=== PATIENT | female | born 1970 | race Caucasian/White ===

== ENCOUNTER 2022-07-13 14:59 | Outpatient (CLI) | payer OTHER, SELFPAY ==
[2022-07-13 16:12] VITALS: BP 100/62; PULSE 95; RESP 18
--- NOTE | 2022-07-13 16:17 | PM.ST ---
Stress Test Note Date Date Seen: 07/13/22 Date of test: 07/13/22 Providers Referring provider: Cecile Lopez Primary care provider: Cecile Lopez Stress test physician: Jorge Ponce Stress Test Note Stress test ordered: Stress Echo Indication for test: Chest pain Stress test medicine: Definity Results discussion: Very nice 51-year-old female presents here with a history of chest pain cardiac stress test medical history form, and the risks benefits and side effects were discussed with both her and her partner. She would like to proceed pretest EKG shows normal sinus rhythm normal EKG with no acute ST wave changes.
--- NOTE | 2022-07-13 16:27 | PM.ST ---
Stress Test Note Date Date Seen: 07/13/22 Date of test: 07/13/22 Providers Referring provider: Mariel Magaña Primary care provider: Cecile Lopez Stress test physician: Jorge Ponce Stress Test Note Stress test ordered: Stress Echo Indication for test: chest pain Stress test medicine: Definity Results discussion: Patient is a makenzie 51-year-old female presents for the above test after discussion the risks benefits and side effects she would like to proceed pretest EKG shows normal sinus rhythm, she appears to have PACs, and a bigeminal type pattern. Sinus and rate of 72 with a blood pressure 104 and 62. She is exercised for a total time of 8 minutes, 1st achieved a metabolic equivalent of 9.7. Test is stop to do fulfillment of protocol, she had no chest pain or shortness of breath, there is no EKG changes suggestive of ischemia, no other acute dysrhythmias are noted. And she recovered normally in the recovery. Impression: Negative electrographic portion of stress echo Follow up suggested: Await echo findings, these will be reviewed by Cardiology, patient left this testing facility in excellent condition.
== END 2022-07-13 15:00 | disposition home or self-care (01) ==
LOC: STRESS 14:59
PROVIDERS: PCP Family Medicine; Visit Provider Family Medicine
DX: R07.89 Other chest pain (principal)
CPT/HCPCS: 93016; 93325; 93351

== ENCOUNTER 2022-08-10 14:39 | Outpatient (CLI) | payer OTHER, SELFPAY | END 2022-08-10 14:40 | disposition home or self-care (01) | LOC: INJ CL 14:39 | PROVIDERS: PCP Family Medicine; Visit Provider Family Medicine | DX: M17.12 Unilateral primary osteoarthritis, left knee (principal); M25.562 Pain in left knee | CPT/HCPCS: 64454 ==

== ENCOUNTER 2022-08-31 12:32 | Outpatient (CLI) | payer OTHER, SELFPAY | END 2022-08-31 12:33 | disposition home or self-care (01) | LOC: INJ CL 12:32 | PROVIDERS: PCP Family Medicine; Visit Provider Family Medicine | DX: M17.12 Unilateral primary osteoarthritis, left knee (principal); G89.29 Other chronic pain; M25.562 Pain in left knee | CPT/HCPCS: 64624; J2250; J3010 ==

== ENCOUNTER 2022-11-17 06:11 | Day surgery (SDC) | payer OTHER, SELFPAY ==
[2022-11-17] VITALS (13 sets, daily range): BP systolic 91–132; BP diastolic 58–89; PULSE 65–98; RESP 16–20; TEMP 36.2–37.1; O2SAT 93–97; BMI 38.9
[2022-11-17] MEDS: LACTATED RINGERS 1000 ML 1,000 ML 100 ML IV (06:00)
[2022-11-17] MEDS: SODIUM CHLORIDE 0.9 % (FLUSH) 10 ML SYRINGE IVF (06:53)
[2022-11-17 06:59] LABS: HCG Qualitative* Negative (Negative)
[2022-11-17] MEDS: CEFAZOLIN 2 GM in 0.9 % SODIUM CHLORIDE Mini-bag 100 ML IVPB (07:28)
--- NOTE | 2022-11-17 07:55 | P.ORPRC_ITS ---
Procedure Note Date of procedure: 11/17/22 Procedure: PREOPERATIVE DIAGNOSIS: 1. Left knee lateral meniscus tear POSTOPERATIVE DIAGNOSIS: 1. Left knee lateral meniscus tear 2. 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 Left knee arthroscopic partial lateral meniscectomy 2. Left knee arthroscopic chondroplasty medial and lateral femoral condyles/compartments SURGEON: Adams Gaitan M.D. PEDIATRIC SURGEON: Jakob ROGEL. Of note, an licensed occupational therapy assistant was critical for this case to aid in patient positioning, knee manipulation, instrument exchange, and closure. ANESTHESIA: Spinal EBL: 2ml TOURNIQUET: 25 minutes at 300 torr COMPLICATIONS: None evident INDICATIONS: The patient is a pleasant 52-year-old female who has experienced left knee pain particularly with any twisting or turning. Physical exam was concerning for medial meniscus tear, this was confirmed on MRI. Additionally, attempted nonoperative management has been tried, and failed. Thus, surgery was recommended. FINDINGS: Full-thickness chondral loss with grade 4 lesions weight-bearing portion lateral femoral condyle and medial femoral condyle both measuring a pproximately 8-10 mm in diameter. Some loose chondral flaps on the adjacent edges. Complex tearing midbody lateral meniscus. Also some splitting and tearing of the anterior horn lateral meniscus. Posterior root was intact. Medial meniscus was intact including the posterior root. Cruciate ligaments intact. No loose bodies. DESCRIPTION OF PROCEDURE: After a thorough discussion of risks, benefits, and alternatives, the patient was brought to the operating room and placed upon the operating table. Induction of anesthesia was undertaken as previously noted. 2g iv Ancef was administered within 1 hr of incision preoperatively. Appropriate time-out was performed identifying proper patient, site, and procedure. The left lower extremity was prepped and draped in the appropriate sterile fashion using ChloraPrep. The limb was exsanguinated and tourniquet inflated. Anterolateral and anteromedial portals were established with an 11 blade, and a diagnostic arthroscopy was performed. This identified the findings as noted above. Following the diagnostic arthroscopy, a partial lateral menisectomy was performed with the combination of basket forceps and a motorized shaver. Following this, the meniscus was re-probed and found to be stable. Approximately 10-15 % of the overall meniscus required resection. Chondroplasty was also performed of the loose chondral flaps in both the medial and lateral compartments adjacent to the grade 4 chondral lesions on the medial and lateral femoral condyle weight-bearing portions. This was done via a torpedo shaver. At this stage, the shaver was reinserted into the suprapatellar pouch and all remaining meniscal debris was evacuated. Instruments were removed, excess fluid was drained, and closure performed with 4-0 Monocryl with Steri-Strips. Dressings were applied, the tourniquet deflated, and the patient was awoken from anesthesia and transferred to the PACU in stable condition. PLAN: 1. Weightbear as tolerated operative extremity. Crutch / walker ambulation assistance PRN. Straight leg raise to be initiated starting tomorrow by the patient. 2. Ice, acetominophen and/or ibuprofen, and Percocet for pain as needed. 3. Knee range of motion and quad sets/straight leg raise regularly 4. Follow up with PA visit in 7-10 days. for a wound check. Initiate physical therapy at that time
[2022-11-17] MEDS: ROPIVACAINE 0.5% 30 ML 150 MG INJECTION (08:00)
--- NOTE | 2022-11-17 08:12 | W.ANESCHARGE ---
Anesthesia Charges Start Date/Time Anesthesia Start Date: 11/17/22 Anesthesia Start Time: 07:15 Stop Date/Time Anesthesia Stop Date: 11/17/22 Anesthesia Stop Time: 08:11 Summary Emergency: No
--- NOTE | 2022-11-17 08:16 | W.ANESCHARGE ---
Anesthesia Charges Start Date/Time Anesthesia Start Date: 11/17/22 Anesthesia Start Time: 07:15 Stop Date/Time Anesthesia Stop Date: 11/17/22 Anesthesia Stop Time: 08:11 Summary Emergency: No
== END 2022-11-17 10:07 | disposition home or self-care (01) ==
PROVIDERS: Anesthesiology; PCP Family Medicine; Visit Provider Orthopaedic Surgery Sports Medicine
PROC: (CPT 29870; principal; 2022-11-17 07:15)
DX: S83.282A Other tear of lateral meniscus, current injury, left knee, initial encounter (principal); M94.262 Chondromalacia, left knee
CPT/HCPCS: 29881; 1400; 84703; J0690; J1100; J2250; J2370; J2400; J2405; J2704; J2795; J3010; J7120

== ENCOUNTER 2023-01-04 15:45 | Outpatient (RCR) | payer OTHER, SELFPAY | END 2023-02-15 15:12 | disposition home or self-care (01) | PROVIDERS: PCP Family Medicine; Visit Provider Orthopaedic Surgery Sports Medicine | DX: S83.282A Other tear of lateral meniscus, current injury, left knee, initial encounter (principal); Z98.890 Other specified postprocedural states; M25.562 Pain in left knee; M62.81 Muscle weakness (generalized); R26.9 Unspecified abnormalities of gait and mobility; Z51.89 Encounter for other specified aftercare | CPT/HCPCS: 97110; 97140; 97161; 97530 ==

== ENCOUNTER 2023-06-30 12:50 | Outpatient (CLI) | payer OTHER, SELFPAY ==
--- NOTE | 2023-06-30 13:00 | MR_ITS ---
[address] [address] Phone:?[phone] Fax:?[phone] Referring Physician Information: Adams Gaitan M.D. [id number] [facility] [address] Phone:?[phone] Fax:?[phone] Patient:Ayad Flowers D.O.B:?1970 Sex:?Female Phone:?[phone] [facility] MRN:?[id number] Exam Date:?06/30/2023 EXAM: MRI OF THE LEFT KNEE CLINICAL INFORMATION: The patient is a 52-year-old with left knee pain. Evaluate for stress fracture of the medial tibial plateau. PRIOR SURGERY: The patient has a history of prior surgery to the region. COMPARISON STUDIES: Comparison is made to the prior MRI examination dated 03/18/2022. TECHNICAL INFORMATION: Imaging was performed on a high-field, 1.5 Fabienne MR scanner. Axial proton-density and fat-suppressed T2 imaging of the left knee was performed in addition to sagittal proton-density and fat-suppressed proton- density imaging. Coronal proton-density and coronal STIR imaging was also performed. FINDINGS: Articular/Extraarticular collections: Effusion: Mild to moderate. Popliteal cyst: Moderate, seen to best advantage on sagittal series 6 image 9. Loose bodies: No well-defined intra-articular loose bodies are present. Subcutaneous and extraarticular soft tissues: Within normal limits. Osseous structures: There is cortical irregularity and subcortical edema along the medial articular surfaces of the lateral tibial plateau, seen to best advantage on coronal series 8 image 18 and on sagittal series 6 image 19. The findings are most in keeping with reactive bony changes related to the chondromalacia and chondral loss described below. No definite evidence for well-defined fracture of the medial or lateral tibial plateaus can be seen. There is no definite evidence for well- defined stress injury. No other bony abnormalities about the knee are noted. Ligamentous structures: ACL: Intact and normal in appearance. PCL: Intact and normal in appearance. MCL: Intact and normal in appearance. LCL: Intact and normal in appearance. Posterolateral corner: Intact and normal in appearance. Posteromedial corner: No posteromedial corner soft tissue injury. Semimembranosus and pes anserine tendons demonstrate no tendinopathy or associated bursitis. Extensor mechanism/Patellar retinacular structures: Patellar tendon: Intact, without tendinopathy. Quadriceps tendon: Intact, without tendinopathy. Retinacula: The medial and lateral retinacula are intact. The medial patellofemoral ligament is intact. Medial compartment: Medial meniscus: No evidence for medial meniscal tearing can be seen. There is no evidence for parameniscal cyst formation. No meniscocapsular separation injury is identified. Medial femoral condyle: Grade II chondromalacia can be seen along the weightbearing surfaces of the medial femoral condyle. No full-thickness chondral defects are seen. Medial tibial plateau: No chondromalacia, chondral defect, or osteochondral abnormality. Lateral compartment: Lateral meniscus: The lateral meniscus is abnormal in appearance. There is broad-based tearing and degeneration of the middle and anterior portions of the lateral meniscus seen on coronal series 7 image 16 and on sagittal series 5 image 23. The middle one third tearing is predominantly horizontal in orientation while the anterior horn tearing is complex involving the superior and inferior surfaces with extension to the meniscal attachment. These areas of tearing has progressed in appearance when compared to the prior examination. No definite evidence for well-defined parameniscal cyst formation is identified. Lateral femoral condyle: Grade II to III chondromalacia can be seen along the weightbearing surfaces of the lateral femoral condyle. Lateral tibial plateau: Full-thickness and near full-thickness chondral loss can be seen along the central and medial weightbearing surfaces of the lateral tibial plateau. Underlying bony changes are seen. These findings were also present on the prior MRI examination. Patellofemoral compartment: Patella: Grade II chondromalacia can be seen along the lateral and medial patellar facets. No full-thickness patellar chondral defects are noted. Trochlea: Grade II to III chondromalacia and fissuring can be seen along the articular surfaces of the femoral trochlea. Neurovascular: No definite neurovascular abnormalities are seen. CONCLUSION: 1. No definite evidence for fracture or stress injury can be seen. 2. Broad-based tearing of the middle and anterior portions of the lateral meniscus, progressed in appearance when compared to the prior study. No well- defined medial meniscal tearing is seen. 3. Chondromalacia and chondral loss involving all 3 joint compartments as described above. 4. The cruciate and collateral ligaments appear intact. 5. Mild to moderate knee joint effusion and moderate popliteal cyst. [facility] Electronically signed on 06/30/2023 3:29:00 PM by Corona Estrada M.D.
== END 2023-06-30 12:51 | disposition home or self-care (01) ==
LOC: MRI 12:51
PROVIDERS: PCP Family Medicine; Visit Provider Orthopaedic Surgery Sports Medicine
DX: M25.562 Pain in left knee (principal); S83.282A Other tear of lateral meniscus, current injury, left knee, initial encounter; M94.262 Chondromalacia, left knee; M25.462 Effusion, left knee; M22.8X2 Other disorders of patella, left knee; Z98.890 Other specified postprocedural states
CPT/HCPCS: 73721; T1013

== ENCOUNTER 2023-07-11 12:26 | Emergency (ER) | payer OTHER, SELFPAY ==
[2023-07-11] VITALS (20 sets, daily range): BP systolic 97–114; BP diastolic 62–83; PULSE 79–88; RESP 20–22; TEMP 36.2; O2SAT 92–97; BMI 35.0
--- NOTE | 2023-07-11 13:00 | CRLHL7_ITS ---
For Patients: As a result of the Century Cures Act, medical imaging exams and procedure reports are released immediately into your electronic medical record. You may view this report before your referring provider. If you have questions, please contact your health care provider. INDICATION: RLQ PAIN, POST HYSTERECTOMY 07/05/23 TECHNIQUE: CT abdomen and pelvis acquired with 95 cc Isovue 370 IV contrast. COMPARISON: None. FINDINGS: Lower chest: Motion. Subsegmental atelectasis. 3 millimeter left lower lobe indeterminate nodule abutting the major fissure, likely intrapulmonary lymphoid tissue. ABDOMEN: Liver: Normal enhancement. No focal suspicious hepatic lesions. Gallbladder and biliary: Cholecystectomy. Normal caliber bile ducts. Spleen: Normal size and enhancement. Pancreas: Normal enhancement without peripancreatic inflammatory changes or ductal dilatation. Adrenal glands: Normal adrenal glands. Kidneys and ureters: 2 millimeter nonobstructing upper pole right renal stone. Subcentimeter hypodensities are too small to characterize however statistically represent cysts.. GI tract: The stomach is relatively decompressed. Normal caliber small and large bowel loops. Normal appendix. Vascular structures: Normal caliber abdominal aorta. Lymph nodes: No lymphadenopathy in the abdomen or pelvis by size criteria. Peritoneum: No free air or focal drainable fluid collections. . PELVIS: Genitourinary system: Normal urinary bladder. Changes recent hysterectomy. Ovaries are not definitively visualized.Trace stranding abutting the hysterectomy site, likely postsurgical. Mild adjacent hyperemia and adjacent stranding of the low rectum which may be reactive. SKELETAL STRUCTURES AND SOFT TISSUES: Mild stranding abutting recent port sites in the subcutaneous tissues. Lumbar fixation hardware. Lumbar laminectomy. IMPRESSION: Postoperative changes of recent hysterectomy. Trace adjacent inflammatory stranding is likely postsurgical. No focal drainable fluid collections. Mild hyperemia and adjacent stranding of the adjacent low rectum is indeterminate however likely reactive. Please note that all CT scans at this facility use dose modulation, iterative reconstruction, and/or weight-based dosing when appropriate to reduce radiation dose to as low as reasonably achievable. Dictated by Deny Horowitz MD @ 07/11/2023 3:46:29 PM (Electronically Signed)
--- NOTE | 2023-07-11 13:06 | ED_ITS ---
HPI - General Adult General Chief complaint: Nausea/Vomiting Stated complaint: vomiting Time Seen by Provider: 07/11/23 12:43 Source: patient and family Mode of arrival: ambulatory Limitations: no limitations History of Present Illness HPI narrative: 52-year-old female postop day 6 status post laparoscopic hysterectomy done at [place], presents today with right lower quadrant abdominal pain. States that the pain started this morning. Pain is intense. Nothing makes it better or worse. Causes her to feel very nauseated and she has been dry heaving. She had a piece of toast and coffee this morning has not been able to eat otherwise. She took total of 3 tablets of oxycodone ready this morning without relief of her pain. She denies fevers or chills. The pain does not radiate. She states she has been urinating normally without increased frequency or urgency. She states that her bowel movements have been unchanged and have been normal. Related Data Home Medications Medication Instructions Recorded Confirmed cholecalciferol (vitamin D3) 125 125 mcg PO QDAY 06/25/22 07/11/23 mcg (5,000 unit) tablet (Vitamin D3) fluoxetine 40 mg capsule 40 mg PO QDAY 06/25/22 07/11/23 levothyroxine 125 mcg tablet 125 mcg PO QDAY 06/25/22 07/11/23 mirtazapine 15 mg tablet 15 mg PO 06/25/22 07/08/23 bupropion HCl 150 mg 24 hr tablet, mg PO 11/15/22 07/08/23 extended release semaglutide (weight loss) 2.4 mg subcut 06/21/23 07/08/23 mg/0.75 mL subcutaneous pen injector (Wegovy) oxycodone 5 mg tablet 5 mg PO 07/08/23 07/08/23 pregabalin 75 mg capsule 75 mg PO BID 07/08/23 07/11/23 Allergies Allergy/AdvReac Type Severity Reaction Status Date / Time No Known Drug Allergies Allergy Verified 07/11/23 14:00 Review of Systems Status of ROS: Reports: 10 or more systems reviewed and unremarkable except as noted in History and below [facility] Medical History Rectal hemorrhage ?K62.5 - Hemorrhage of anus and rectum (ICD-10) Neuropathic pain of left lower extremity ?M79.2 - Neuralgia and neuritis, unspecified (ICD-10) Lower abdominal pain ?R10.30 - Lower abdominal pain, unspecified (ICD-10) Acute epigastric pain ?R10.13 - Epigastric pain (ICD-10) GERD (gastroesophageal reflux disease) ?K21.9 - Gastro-esophageal reflux disease without esophagitis (ICD-10) Gastritis ?K29.70 - Gastritis, unspecified, without bleeding (ICD-10) Vertigo ?R42 - Dizziness and giddiness (ICD-10) Surgical History S/P hysterectomy ?Z90.710 - Acquired absence of both cervix and uterus (ICD-10) S/P left knee arthroscopy (11/17/22) ?Z98.890 - Other specified postprocedural states (ICD-10) History of carpal tunnel surgery of right wrist ?Z98.890 - Other specified postprocedural states (ICD-10) History of foot surgery (05/02/17) ?Z98.890 - Other specified postprocedural states (ICD-10) History of back surgery ?Z98.890 - Other specified postprocedural states (ICD-10) H/O breast biopsy ?Z98.890 - Other specified postprocedural states (ICD-10) Previous section ?Z98.891 - History of uterine scar from previous surgery (ICD-10) Family History Mother Diabetes Father Heart problem Social History Smoking Status: Never smoker Do you use any of these nicotine containing products: None Second hand tobacco smoke exposure: No How often do you have a drink containing alcohol: never AUDIT-C Alcohol total score: 0 Non-prescribed substance use: denies use Caffeine: Yes Are you using contraception or practicing any form of control: No Exam Narrative: Exam Narrative: Obese, well-developed patient rocking back and forth in pain, tearful. Alert and cooperative. Answers questions appropriately. Thoughts are goal oriented and rational. No tangential or magical thinking noted. Patient speaks in full sentences without needing to catch her breath. HEENT: Normocephalic atraumatic. Pupils are equally round reactive to light. Extraocular muscles are intact. Conjunctivae are moist without any icterus noted. Moist mucous membranes. Posterior pharynx is normal. Neck is soft without any lymphadenopathy or thyromegaly. No masses are appreciated. Cardiovascular: Heart is regular rate and rhythm S1 and S2 are present without any murmurs. Lungs: Clear to auscultation bilaterally no wheezes rhonchi or rales are appreciated. Patient takes deep breaths without any discomfort. Abdomen: Soft and nondistended. Incisions are healing appropriately. Normal bowel sounds. Some suprapubic discomfort, significant right lower quadrant discomfort with minimal palpation. Extremities: Bilateral lower extremities are without edema. Skin: Well perfused without any obvious rashes. Const: Vital Signs, click to edit/add: Vital Signs - 24 hr 07/11/23 12:36 07/11/23 12:50 07/11/23 13:01 Temperature 97.2 F L Pulse Rate Pulse Rate [Pulse Oximeter] 88 Respiratory Rate 22 20 Blood Pressure Blood Pressure [Ri ght Upper Arm] 107/83 Pulse Oximetry 97 Oxygen Delivery Me thod Room Air Room Air 07/11/23 14:02 07/11/23 14:03 07/11/23 14:04 Temperature Pulse Rate 84 84 84 Pulse Rate [Pulse Oximeter] Respiratory Rate Blood Pressure 113/74 Blood Pressure [Ri ght Upper Arm] Pulse Oximetry 95 93 94 Oxygen Delivery Me thod 07/11/23 14:15 07/11/23 14:30 07/11/23 14:45 Temperature Pulse Rate 86 82 85 Pulse Rate [Pulse Oximeter] Respiratory Rate Blood Pressure Blood Pressure [Ri ght Upper Arm] Pulse Oximetry 94 97 94 Oxygen Delivery Me thod 07/11/23 15:00 07/11/23 15:04 07/11/23 15:05 Temperature Pulse Rate 83 79 80 Pulse Rate [Pulse Oximeter] Respiratory Rate Blood Pressure 114/82 Blood Pressure [Ri ght Upper Arm] Pulse Oximetry 94 96 95 Oxygen Delivery Me thod Course Course ED Course: Lab work was completely normal. Patient received IV Zofran and Dilaudid which did not help her pain whatsoever and she continued rating it a 10/10. This was followed with morphine which also did not help. Abdominal CT did not show any evidence of infection, abscess formation or postop hematoma. A discussion with the patient and her that I do not see any reason for the amount of pain that she is having. We discussed her options at this time and decided to change her oxycodone to hydrocodone with acetaminophen. Recommend she follow up with her surgeon if her pain continues to be uncontrollable. At this time patient does feel comfortable going home. Vital Signs Vital signs: Initial Vital Signs Temperature 97.2 F L 07/11/23 12:36 Temperature Source Temporal Artery Scan 07/11/23 12:36 Pulse Rate 88 07/11/23 12:36 Pulse Rhythm Regular 07/11/23 12:36 Blood Pressure 107/83 07/11/23 12:36 Blood Pressure Mean 91 07/11/23 12:36 Pulse Oximetry 97 07/11/23 12:36 Oxygen Delivery Method Room Air 07/11/23 12:36 Vital Signs Temperature 97.2 F L 07/11/23 12:36 Pulse Rate 88 07/11/23 12:36 Blood Pressure 107/83 07/11/23 12:36 Pulse Oximetry 97 07/11/23 12:36 Oxygen Delivery Method Room Air 07/11/23 12:36 Temperature 97.2 F L 07/11/23 12:36 Pulse Rate 80 07/11/23 15:05 Respiratory Rate 20 07/11/23 13:01 Blood Pressure 114/82 07/11/23 15:04 Pulse Oximetry 95 07/11/23 15:05 Oxygen Delivery Method Room Air 07/11/23 13:01 Medical Decision Making MDM Narrative Medical decision making narrative: Postop pain, plan per above. Lab Data Lab results reviewed: Yes I reviewed the patient's lab results Labs: Lab Results 07/11/23 07/11/23 Range/Units 13:15 Unknown WBC 8.79 (4.50-11.00) K/uL RBC 4.33 (4.00-5.20) m/uL Hgb 13.6 (12.0-16.0) gm/dL Hct 40.4 (33.0-51.0) % MCV 93 (80-100) fL MCH 31 (26-34) pg MCHC 34 (32-36) gm/dL RDW Coeff of [place] 13.4 (11.5-15.5) % Plt Count 275 (140-440) K/uL Neut % (Auto) 54.9 (42.0-72.0) % Lymph % (Auto) 32.5 (20-44) % [place] % (Auto) 7.3 (0.0-11.0) % Eos % (Auto) 4.8 (0.0-7.0) % Baso % (Auto) 0.3 (0.0-3.0) % Neut # (Auto) 4.82 (1.7-7.0) K/uL Lymph # (Auto) 2.86 (0.90-2.90) K/uL [place] # (Auto) 0.60 (0.00-0.90) K/UL Eos # (Auto) 0.42 (0.00-0.50) K/uL Baso # (Auto) 0.03 (0.00-0.30) K/uL Abs Immat Gran (auto) 0.02 (0.00-0.30) K/uL Imm/Tot Granulo (auto) 0.2 % Sodium 138 (135-149) mmol/L Potassium 4.1 (3.6-5.1) mmol/L Chloride 105 (96-114) mmol/L Carbon Dioxide 24 (20-32) mmol/L Anion Gap 9 (7-15) mEq/L BUN 19 (7-30) mg/dL Creatinine 0.8 (0.5-1.5) mg/dL Estimated Creat Clear 62.78 Estimated GFR 89 ml/min Glucose 85 (60-115) mg/dL Lactate 1.5 (0.5-1.9) mmol/L Calcium 9.6 (8.4-10.6) mg/dL Total Bilirubin 0.3 (0.1-1.5) mg/dL Direct Bilirubin 0.0 (0.0-0.5) mg/dL AST 27 (12-35) U/L ALT 27 (4-35) U/L Alkaline Phosphatase 140 (40-150) U/L C-Reactive Protein 0.7 (0.5-1.0) mg/dL Total Protein 7.7 (6.0-8.3) g/dL Albumin 4.2 (3.3-5.0) g/dL Urine Color Yellow (Yellow) Urine Appearance Slightly Cloudy A (Clear) Urine pH 7.0 (5.0-8.5) Ur Specific [place] 1.015 (1.000-1.030) Urine Protein Negative (Negative) Urine Glucose (UA) Negative (Negative) Urine Ketones Negative (Negative) Urine Blood Negative (Negative) Urine Nitrite Negative (Negative) Urine Bilirubin Negative (Negative) Urine Urobilinogen 0.2 (0.2-1.0) Ur Leukocyte Esterase Negative (Negative) Urine RBC 0-2 (0-2) Urine WBC 0-2 (0-5) Ur Squamous Epith Cells Few (None-Few) Urine Bacteria None (None) Imaging Data CT scan - abdomen: Attestation: I have reviewed the pertinent imaging results. Radiologist's impression: CT abdomen and pelvis acquired with 95 cc Isovue 370 IV contrast. COMPARISON: None. FINDINGS: Lower chest: Motion. Subsegmental atelectasis. 3 millimeter left lower lobe indeterminate nodule abutting the major fissure, likely intrapulmonary lymphoid tissue. ABDOMEN: Liver: Normal enhancement. No focal suspicious hepatic lesions. Gallbladder and biliary: Cholecystectomy. Normal caliber bile ducts. Spleen: Normal size and enhancement. Pancreas: Normal enhancement without peripancreatic inflammatory changes or ductal dilatation. Adrenal glands: Normal adrenal glands. Kidneys and ureters: 2 millimeter nonobstructing upper pole right renal stone. Subcentimeter hypodensities are too small to characterize however statistically represent cysts.. GI tract: The stomach is relatively decompressed. Normal caliber small and large bowel loops. Normal appendix. Vascular structures: Normal caliber abdominal aorta. Lymph nodes: No lymphadenopathy in the abdomen or pelvis by size criteria. Peritoneum: No free air or focal drainable fluid collections. . PELVIS: Genitourinary system: Normal urinary bladder. Changes recent hysterectomy. Ovaries are not definitively visualized.Trace stranding abutting the hysterectomy site, likely postsurgical. Mild adjacent hyperemia and adjacent stranding of the low rectum which may be reactive. SKELETAL STRUCTURES AND SOFT TISSUES: Mild stranding abutting recent port sites in the subcutaneous tissues. Lumbar fixation hardware. Lumbar laminectomy. IMPRESSION: Postoperative changes of recent hysterectomy. Trace adjacent inflammatory stranding is likely postsurgical. No focal drainable fluid collections. Mild hyperemia and adjacent stranding of the adjacent low rectum is indeterminate however likely reactive. Discharge Plan Discharge Clinical Impression: Post-op pain Patient Disposition: Home, Self-Care Condition: Stable Additional Instructions: New pain medications sent to [facility]. Follow-up with your surgeon in the next week if pain continues to be uncontrolla ble. Prescriptions: No Action mirtazapine 15 mg tablet 15 mg PO fluoxetine 40 mg capsule 40 mg PO QDAY Patient Comments: TAKE 1 CAPSULE (40 MG) BY MOUTH EVERY MORNING. levothyroxine 125 mcg tablet 125 mcg PO QDAY Patient Comments: TAKE 1 TABLET (125MCG) BY MOUTH ONCE DAILY BEFORE BREAKFAST cholecalciferol (vitamin D3) [Vitamin D3] 125 mcg (5,000 unit) tablet 125 mcg PO QDAY Wegovy 2.4 mg/0.75 mL pen injector subcut oxycodone 5 mg tablet 5 mg PO pregabalin 75 mg capsule 75 mg PO BID bupropion HCl 150 mg tablet extended release 24 hr PO Patient Comments: TAKE 2 TABLETS (300 MG) BY MOUTH EVERY MORNING. Follow Up/Referrals: Mariel Magaña DO [Primary Care Provider] - Stand Alone Forms: [facility] Info Instructions
[2023-07-11 13:19] LABS: Lactate* 1.5 mmol/L (0.5-1.9)
[2023-07-11 13:23] LABS: Basophils Absolute Auto 0.03 K/uL (0.00-0.30); Basophils Percent Auto 0.3 % (0.0-3.0); Eosinophils Absolute Auto 0.42 K/uL (0.00-0.50); Eosinophils Percent Auto 4.8 % (0.0-7.0); Hematocrit 40.4 % (33.0-51.0); Hemoglobin* 13.6 gm/dL (12.0-16.0); Immature Granulocytes Abs Auto 0.02 K/uL (0.00-0.30); Immature Granulocytes Pct Auto 0.2 %; Lymphocytes Absolute Auto 2.86 K/uL (0.90-2.90); Lymphocytes Percent Auto 32.5 % (20-44); Mean Corpuscular HGB Conc 34 gm/dL (32-36); Mean Corpuscular Hemoglobin 31 pg (26-34); Mean Corpuscular Volume 93 fL (80-100); Monocytes Percent Auto 7.3 % (0.0-11.0); Neutrophils Absolute Auto 4.82 K/uL (1.7-7.0); Neutrophils Percent Auto 54.9 % (42.0-72.0); Platelet Count* 275 K/uL (140-440); RDW Coefficient of Variation % 13.4 % (11.5-15.5); Red Blood Count 4.33 m/uL (4.00-5.20); White Blood Count* 8.79 K/uL (4.50-11.00)
[2023-07-11] MEDS: 0.9 % SODIUM CHLORIDE 1000 ml 1,000 ML IV (13:31)
[2023-07-11] MEDS: ONDANSETRON 2 MG/ML inj 4 MG IVP (13:32)
[2023-07-11] MEDS: HYDROmorphone 0.5 mg/0.5 ml inj IVP ×2 (13:33→15:06)
[2023-07-11 13:36] LABS: Slide Review Reflex No
[2023-07-11 13:51] LABS: Albumin* 4.2 g/dL (3.3-5.0); Chloride* 105 mmol/L (96-114); Sodium* 138 mmol/L (135-149)
[2023-07-11 13:52] LABS: Potassium* 4.1 mmol/L (3.6-5.1)
[2023-07-11 13:54] LABS: Creatinine* 0.8 mg/dL (0.5-1.5); Est. Creatinine Clearance* 62.78; Estimated Glomerular Filt Rate 89 ml/min
[2023-07-11 13:55] LABS: Alanine Aminotransferase* 27 U/L (4-35); Alkaline Phosphatase* 140 U/L (40-150); Anion Gap 9 mEq/L (7-15); Aspartate Amino Transferase* 27 U/L (12-35); Bilirubin Total* 0.3 mg/dL (0.1-1.5); Blood Urea Nitrogen* 19 mg/dL (7-30); Calcium* 9.6 mg/dL (8.4-10.6); Carbon Dioxide* 24 mmol/L (20-32); Glucose* 85 mg/dL (60-115); Total Protein* 7.7 g/dL (6.0-8.3)
[2023-07-11 13:58] LABS: C Reactive Protein* 0.7 mg/dL (0.5-1.0)
[2023-07-11 14:04] LABS: Appearance Urine Slightly Cloudy (Clear); Bilirubin Urine Negative (Negative); Blood Urine Negative (Negative); Color Urine Yellow (Yellow); Glucose Urine Negative (Negative); Ketones Urine Negative (Negative); Leukocyte Esterase Urine Negative (Negative); Nitrite Urine Negative (Negative); Protein Urine Negative (Negative); Specific Gravity Urine 1.015 (1.000-1.030); Urobilinogen Urine 0.2 (0.2-1.0)
[2023-07-11 14:15] LABS: RBC Urine 0-2 (0-2); Squamous Epithelial Cell Urine Few (None-Few); WBC Urine 0-2 (0-5)
--- NOTE | 2023-07-11 16:34 | ED.NURSE ---
No use of interputor per pt request (saeid signed). at bedside. Understand D/C instructions no further questions
== END 2023-07-11 16:20 | disposition home or self-care (01) ==
PROVIDERS: Emergency Provider Family Medicine; PCP Family Medicine
DX: R10.31 Right lower quadrant pain (principal); G89.18 Other acute postprocedural pain
CPT/HCPCS: 36415; 74177; 80048; 80076; 81001; 83605; 85025; 86140; 87086; 96374; 96375; 96376; 99283; 99284; 99285; J1170; J2405; J7030; Q9967

== ENCOUNTER 2023-08-01 10:20 | Emergency (ER) | payer OTHER, SELFPAY ==
[2023-08-01 11:19] VITALS: BP 145/89; PULSE 75; RESP 16; TEMP 36.6; O2SAT 95; BMI 28.8
--- NOTE | 2023-08-01 11:38 | CRLHL7_ITS ---
For Patients: As a result of the Century Cures Act, medical imaging exams and procedure reports are released immediately into your electronic medical record. You may view this report before your referring provider. If you have questions, please contact your health care provider. indication: Postop pelvic pain since Technique: Volumetric multidetector CT images of the abdomen and pelvis were obtained after the administration of intravenous contrast. 82 cc Isovue 370 low osmolar intravenous contrast Comparison: CT abdomen and pelvis July 11, 2023 Findings: The lung bases are clear. The liver is enlarged with moderate hepatic steatosis. There is no focal abnormality. The portal vein is patent. There is prior cholecystectomy. There is no significant common biliary ductal dilatation or abrupt cut off. The spleen is normal in enhancement and size. The stomach and duodenum are grossly unremarkable. The pancreas is normal in enhancement without significant atrophy. The adrenal glands are unremarkable. The kidneys demonstrate preserved corticomedullary differentiation without evidence of obstructive uropathy. There is moderate stool seen throughout the colon without evidence of focal abnormality or diverticulosis. The appendix is unremarkable. There is no significant mesenteric, retroperitoneal, or pelvic sidewall lymph nodes. The aorta is nonaneurysmal. There is no significant atherosclerotic disease appreciated. There is prior hysterectomy. There is no free fluid or free air. There is diastasis of the rectus musculature with a small fat containing umbilical hernia. The lumbar vertebral body heights are grossly maintained with pedicle screw and posterior stabilization fixation. There is minimal laminectomy of the L5-S1 level. Impression: Prior hysterectomy. No definite acute pelvic abnormalities are appreciated. Moderate stool seen throughout the colon. Stable mild hepatomegaly and hepatic steatosis. Please note that all CT scans at this facility use dose modulation, iterative reconstruction, and/or weight-based dosing when appropriate to reduce radiation dose to as low as reasonably achievable. Dictated by Maxwell Vegas MD @ 08/01/2023 1:38:12 PM (Electronically Signed)
--- NOTE | 2023-08-01 11:46 | ED.GENADULT ---
HPI - General Adult General Date Seen: 08/01/23 Chief complaint: Abdominal Pain Stated complaint: Lower abdominal pain Time Seen by Provider: 08/01/23 11:33 Source: patient, RN notes reviewed and bilingual interpreter Mode of arrival: ambulatory Limitations: language barrier History of Present Illness HPI narrative: Patient is a 53-year-old woman, Congolese speaking, history obtained with the assistance of an bilingual interpreter. She had a hysterectomy and bilateral oophorectomy on July 05 at [place] secondary to endometriosis. She had done well after surgery until last , 5 days ago when she developed pain across her pelvis and into her left leg. She says that it was initially mild but then rather abruptly became more severe and has stayed that way since then. She has not had any urinary symptoms, no fever, no nausea or vomiting, no constipation. She has tried ibuprofen, Tylenol and oxycodone and none of them have helped. She called her surgeon and they recommended that she come to the ER. General health is otherwise good, she takes Lyrica and Prozac, vitamins, Synthroid. No allergies, does not smoke or drink. Related Data Home Medications Medication Instructions Recorded Confirmed cholecalciferol (vitamin D3) 125 125 mcg PO QDAY 06/25/22 07/11/23 mcg (5,000 unit) tablet (Vitamin D3) fluoxetine 40 mg capsule 40 mg PO QDAY 06/25/22 07/11/23 levothyroxine 125 mcg tablet 125 mcg PO QDAY 06/25/22 07/11/23 mirtazapine 15 mg tablet 15 mg PO 06/25/22 07/08/23 bupropion HCl 150 mg 24 hr tablet, mg PO 11/15/22 07/08/23 extended release semaglutide (weight loss) 2.4 mg subcut 06/21/23 07/08/23 mg/0.75 mL subcutaneous pen injector (Wegovy) oxycodone 5 mg tablet 5 mg PO 07/08/23 07/08/23 pregabalin 75 mg capsule 75 mg PO BID 07/08/23 07/11/23 Allergies Allergy/AdvReac Type Severity Reaction Status Date / Time No Known Drug Allergies Allergy Verified 07/11/23 14:00 Review of Systems Status of ROS: Reports: 10 or more systems reviewed and unremarkable except as noted in History and below [facility] Medical History Rectal hemorrhage ?K62.5 - Hemorrhage of anus and rectum (ICD-10) Neuropathic pain of left lower extremity ?M79.2 - Neuralgia and neuritis, unspecified (ICD-10) Lower abdominal pain ?R10.30 - Lower abdominal pain, unspecified (ICD-10) Acute epigastric pain ?R10.13 - Epigastric pain (ICD-10) GERD (gastroesophageal reflux disease) ?K21.9 - Gastro-esophageal reflux disease without esophagitis (ICD-10) Gastritis ?K29.70 - Gastritis, unspecified, without bleeding (ICD-10) Vertigo ?R42 - Dizziness and giddiness (ICD-10) Surgical History S/P hysterectomy ?Z90.710 - Acquired absence of both cervix and uterus (ICD-10) S/P left knee arthroscopy (11/17/22) ?Z98.890 - Other specified postprocedural states (ICD-10) History of carpal tunnel surgery of right wrist ?Z98.890 - Other specified postprocedural states (ICD-10) History of foot surgery (05/02/17) ?Z98.890 - Other specified postprocedural states (ICD-10) History of back surgery ?Z98.890 - Other specified postprocedural states (ICD-10) H/O breast biopsy ?Z98.890 - Other specified postprocedural states (ICD-10) Previous section ?Z98.891 - History of uterine scar from previous surgery (ICD-10) Family History Mother Diabetes Father Heart problem Social History Smoking Status: Never smoker Do you use any of these nicotine containing products: None Second hand tobacco smoke exposure: No How often do you have a drink containing alcohol: never AUDIT-C Alcohol total score: 0 Non-prescribed substance use: denies use Caffeine: Yes Are you using contraception or practicing any form of control: No Exam Narrative: Exam Narrative: Vital signs as noted above. In general, an alert, well-appearing patient. Head: Normocephalic, atraumatic. Eyes: Pupils are equal reactive. Extraocular movements are full. Conjunctivae are normal. ENT: Mucous membranes are moist. Throat is normal. Neck: Supple without lymphadenopathy. Heart: Regular rate and rhythm. No murmur or rub. Lungs: Clear bilaterally. No increased work of breathing, crackles or wheezes. Abdomen: Soft and nondistended. Laparoscopic incisions well healed without erythema, swelling or drainage. Mild pelvic tenderness without rebound guarding or rigidity. Extremities: Well perfused. No edema. No calf tenderness. Pulses intact. Neurologic: Patient is alert and oriented to person and place. Speech is fluent. Face is symmetric. Moves all extremities equally. Affect: Normal. Skin: Warm and dry. Well perfused. Const: Vital Signs, click to edit/add: Vital Signs - 24 hr 08/01/23 11:19 08/01/23 13:31 Temperature 97.9 F Pulse Rate [Pulse Oximeter] 75 80 Respiratory Rate 16 16 Blood Pressure [Ri ght Upper Arm] 145/89 H 111/84 Pulse Oximetry 95 95 Oxygen Delivery Me thod Room Air Documenting provider has reviewed patient's vital signs: yes Course Course ED Course: Following initial evaluation, an IV was placed, she had some Toradol, I ordered a CT scan and labs. Her labs are really very reassuring, hemoglobin and white count are normal no left shift. Metabolic panel is unremarkable, lactate is 0.7. LFTs are normal aside from a mildly elevated alk-phos of 159. CRP is less than 0.5. UA shows no red cells and no white cells. CT scan by my review showed fair amount of stool in the colon and rectum, I did not see any evidence of hematoma or abscess, bowel obstruction, or other acute abnormalities. Final radiology report is as follows:Findings: The lung bases are clear. The liver is enlarged with moderate hepatic steatosis. There is no focal abnormality. The portal vein is patent. There is prior cholecystectomy. There is no significant common biliary ductal dilatation or abrupt cut off. The spleen is normal in enhancement and size. The stomach and duodenum are grossly unremarkable. The pancreas is normal in enhancement without significant atrophy. The adrenal glands are unremarkable. The kidneys demonstrate preserved corticomedullary differentiation without evidence of obstructive uropathy. There is moderate stool seen throughout the colon without evidence of focal abnormality or diverticulosis. The appendix is unremarkable. There is no significant mesenteric, retroperitoneal, or pelvic sidewall lymph nodes. The aorta is nonaneurysmal. There is no significant atherosclerotic disease appreciated. There is prior hysterectomy. There is no free fluid or free air. There is diastasis of the rectus musculature with a small fat containing umbilical hernia. The lumbar vertebral body heights are grossly maintained with pedicle screw and posterior stabilization fixation. There is minimal laminectomy of the L5-S1 level. Impression: Prior hysterectomy. No definite acute pelvic abnormalities are appreciated. Moderate stool seen throughout the colon. Stable mild hepatomegaly and hepatic steatosis. I have discussed these findings with her. Given the absence of any laboratory or CT significant abnormalities, and with recent hysterectomy and narcotic use, I would suspect that her symptoms are related to constipation. I have recommended use of MiraLax twice a day and Dulcolax twice a day until she is having regular bowel movements and then she can back off to just the MiraLax once a day. I did discuss the possibility of enema as well but that is not something she is interested in. If she is not improving despite this treatment, recommend primary care follow-up or follow-up with her surgeon. Return at any time to the ER for acute severe uncontrolled pain, vomiting, fevers or other changes. Vital Signs Vital signs: Initial Vital Signs Temperature 97.9 F 08/01/23 11:19 Temperature Source Temporal Artery Scan 08/01/23 11:19 Pulse Rate 75 08/01/23 11:19 Pulse Rhythm Regular 08/01/23 11:19 Respiratory Rate 16 08/01/23 11:19 Blood Pressure 145/89 H 08/01/23 11:19 Blood Pressure Mean 107 H 08/01/23 11:19 Blood Pressure Position Sitting 08/01/23 11:19 Pulse Oximetry 95 08/01/23 11:19 Vital Signs Temperature 97.9 F 08/01/23 11:19 Pulse Rate 75 08/01/23 11:19 Respiratory Rate 16 08/01/23 11:19 Blood Pressure 145/89 H 08/01/23 11:19 Pulse Oximetry 95 08/01/23 11:19 Temperature 97.9 F 08/01/23 11:19 Pulse Rate 80 08/01/23 13:31 Respiratory Rate 16 08/01/23 13:31 Blood Pressure 111/84 08/01/23 13:31 Pulse Oximetry 95 10/16/23 13:31 Oxygen Delivery Method Room Air 08/01/23 13:31 Medical Decision Making Lab Data Labs: Lab Results 08/01/23 08/01/23 Range/Units 11:45 11:50 WBC 5.38 (4.50-11.00) K/uL RBC 3.88 L (4.00-5.20) m/uL Hgb 12.2 (12.0-16.0) gm/dL Hct 37.0 (33.0-51.0) % MCV 95 (80-100) fL MCH 31 (26-34) pg MCHC 33 (32-36) gm/dL RDW Coeff of [place] 13.3 (11.5-15.5) % Plt Count 285 (140-440) K/uL Neut % (Auto) 52.4 (42.0-72.0) % Lymph % (Auto) 37.9 (20-44) % [place] % (Auto) 6.7 (0.0-11.0) % Eos % (Auto) 2.6 (0.0-7.0) % Baso % (Auto) 0.4 (0.0-3.0) % Neut # (Auto) 2.82 (1.7-7.0) K/uL Lymph # (Auto) 2.04 (0.90-2.90) K/uL [place] # (Auto) 0.40 (0.00-0.90) K/UL Eos # (Auto) 0.14 (0.00-0.50) K/uL Baso # (Auto) 0.02 (0.00-0.30) K/uL Abs Immat Gran (auto) 0.00 (0.00-0.30) K/uL Imm/Tot Granulo (auto) 0.0 % Sodium 141 (135-149) mmol/L Potassium 3.9 (3.6-5.1) mmol/L Chloride 106 (96-114) mmol/L Carbon Dioxide 26 (20-32) mmol/L Anion Gap 9 (7-15) mEq/L BUN 21 (7-30) mg/dL Creatinine 0.8 (0.5-1.5) mg/dL Estimated Creat Clear 71.03 Estimated GFR 89 ml/min Glucose 88 (60-115) mg/dL Lactate 0.7 (0.5-1.9) mmol/L Calcium 9.2 (8.4-10.6) mg/dL Total Bilirubin 0.3 (0.1-1.5) mg/dL Direct Bilirubin 0.0 (0.0-0.5) mg/dL AST 36 H (12-35) U/L ALT 33 (4-35) U/L Alkaline Phosphatase 159 H (40-150) U/L C-Reactive Protein < 0.5 L (0.5-1.0) mg/dL Total Protein 7.1 (6.0-8.3) g/dL Albumin 4.1 (3.3-5.0) g/dL Urine Color Yellow (Yellow) Urine Appearance Slightly Cloudy A (Clear) Urine pH 7.0 (5.0-8.5) Ur Specific [place] 1.020 (1.000-1.030) Urine Protein Negative (Negative) Urine Glucose (UA) Negative (Negative) Urine Ketones Negative (Negative) Urine Blood Trace-intact A (Negative) Urine Nitrite Negative (Negative) Urine Bilirubin Negative (Negative) Urine Urobilinogen 0.2 (0.2-1.0) Ur Leukocyte Esterase Trace A (Negative) Urine RBC 0-2 (0-2) Urine WBC 0-2 (0-5) Ur Squamous Epith Cells Few (None-Few) Amorphous Sediment Many A (None) Urine Bacteria Few A (None) Discharge Plan Discharge Clinical Impression: Abdominal pain, Constipation Patient Disposition: Home, Self-Care Condition: Stable Instructions: Constipation (DC), Abdominal Pain (ED) Additional Instructions: I would recommend taking 1 capful of MiraLax twice daily for the next few days to week, until you start having regular bowel movements. Dulcolax Twice daily until you are having regular bowel movements. At that point, you can switch to 1 capful daily of MiraLax. Please avoid oxycodone this will make constipation worse. Make sure your getting plenty of fluids and an adequate amount of fiber. If you have persistent pain despite this treatment, please follow-up with your regular doctor or surgeon. Return to the ER for new symptoms such as fever, vomiting, severe uncontrolled pain. Recomendar?a rafa 1 tapa de MiraLax dos veces al d?a susana los pr?ximos d?as hasta dennis la semana, hasta que comience a defecar con regularidad. Randa Dulcolax dos veces al d?a hasta que tenga heces regulares. En delio momento, puede cambiar a 1 tapa dennis vez al harper de MiraLax. No tome la oxicodona, ya que empeorar? el estre?imiento. Aseg?rese de consumir muchos l?quidos y dennis cantidad adecuada de fibra. Si tiene dolor persistente a pesar de adolfo tratamiento, consulte con grajeda m?dico en la clinica o cirujano habitual. Regrese a la kristine de emergencias si presenta nuevos s?ntomas, shawna fiebre, v?mitos y dolor intenso e incontrolable. Prescriptions: No Action mirtazapine 15 mg tablet 15 mg PO fluoxetine 40 mg capsule 40 mg PO QDAY Patient Comments: TAKE 1 CAPSULE (40 MG) BY MOUTH EVERY MORNING. levothyroxine 125 mcg tablet 125 mcg PO QDAY Patient Comments: TAKE 1 TABLET (125MCG) BY MOUTH ONCE DAILY BEFORE BREAKFAST cholecalciferol (vitamin D3) [Vitamin D3] 125 mcg (5,000 unit) tablet 125 mcg PO QDAY Wegovy 2.4 mg/0.75 mL pen injector subcut oxycodone 5 mg tablet 5 mg PO pregabalin 75 mg capsule 75 mg PO BID bupropion HCl 150 mg tablet extended release 24 hr PO Patient Comments: TAKE 2 TABLETS (300 MG) BY MOUTH EVERY MORNING. Follow Up/Referrals: Mariel Magaña DO [Primary Care Provider] - Stand Alone Forms: [facility] Info Instructions
[2023-08-01] MEDS: KETOROLAC 15 MG/ML inj IVP (12:01)
[2023-08-01 12:03] LABS: Basophils Absolute Auto 0.02 K/uL (0.00-0.30); Basophils Percent Auto 0.4 % (0.0-3.0); Eosinophils Absolute Auto 0.14 K/uL (0.00-0.50); Eosinophils Percent Auto 2.6 % (0.0-7.0); Hemoglobin* 12.2 gm/dL (12.0-16.0); Lymphocytes Absolute Auto 2.04 K/uL (0.90-2.90); Lymphocytes Percent Auto 37.9 % (20-44); Mean Corpuscular HGB Conc 33 gm/dL (32-36); Mean Corpuscular Hemoglobin 31 pg (26-34); Mean Corpuscular Volume 95 fL (80-100); Monocytes Percent Auto 6.7 % (0.0-11.0); Neutrophils Absolute Auto 2.82 K/uL (1.7-7.0); Neutrophils Percent Auto 52.4 % (42.0-72.0); Platelet Count* 285 K/uL (140-440); RDW Coefficient of Variation % 13.3 % (11.5-15.5); Red Blood Count 3.88 m/uL (4.00-5.20); White Blood Count* 5.38 K/uL (4.50-11.00)
[2023-08-01 12:04] LABS: Slide Review Reflex No
[2023-08-01 12:07] LABS: Appearance Urine Slightly Cloudy (Clear); Bilirubin Urine Negative (Negative); Blood Urine Trace-intact (Negative); Color Urine Yellow (Yellow); Glucose Urine Negative (Negative); Ketones Urine Negative (Negative); Leukocyte Esterase Urine Trace (Negative); Nitrite Urine Negative (Negative); Protein Urine Negative (Negative); Urobilinogen Urine 0.2 (0.2-1.0)
[2023-08-01 12:15] LABS: Chloride* 106 mmol/L (96-114); Potassium* 3.9 mmol/L (3.6-5.1); Sodium* 141 mmol/L (135-149)
[2023-08-01 12:16] LABS: Albumin* 4.1 g/dL (3.3-5.0); Lactate* 0.7 mmol/L (0.5-1.9)
[2023-08-01 12:18] LABS: Creatinine* 0.8 mg/dL (0.5-1.5); Est. Creatinine Clearance* 71.03; Estimated Glomerular Filt Rate 89 ml/min
[2023-08-01 12:19] LABS: Alkaline Phosphatase* 159 U/L (40-150); Anion Gap 9 mEq/L (7-15); Aspartate Amino Transferase* 36 U/L (12-35); Bilirubin Total* 0.3 mg/dL (0.1-1.5); Blood Urea Nitrogen* 21 mg/dL (7-30); Calcium* 9.2 mg/dL (8.4-10.6); Carbon Dioxide* 26 mmol/L (20-32); Glucose* 88 mg/dL (60-115); Total Protein* 7.1 g/dL (6.0-8.3)
[2023-08-01 12:20] LABS: Alanine Aminotransferase* 33 U/L (4-35)
[2023-08-01 12:24] LABS: C Reactive Protein* < 0.5 mg/dL (0.5-1.0)
[2023-08-01 12:24] LABS: Amorphous Sediment Urine Many; Bacteria Urine Few; RBC Urine 0-2 (0-2); Squamous Epithelial Cell Urine Few (None-Few); WBC Urine 0-2 (0-5)
--- NOTE | 2023-08-01 13:30 | ED.NURSE ---
Pt reports no improvement in pain. MD Block updated.
[2023-08-01 13:31] VITALS: BP 111/84; PULSE 80; RESP 16; O2SAT 95
[2023-08-01 15:00] VITALS: BP 111/84; PULSE 80; RESP 16; TEMP 36.6
== END 2023-08-01 15:00 | disposition home or self-care (01) ==
PROVIDERS: Emergency Provider Emergency Medicine; PCP Family Medicine
DX: R10.9 Unspecified abdominal pain (principal); K59.00 Constipation, unspecified
CPT/HCPCS: 36415; 74177; 80048; 80076; 81001; 83605; 85025; 86140; 87086; 96374; 99284; 99285; T1013; J1885; Q9967

== ENCOUNTER 2023-09-20 13:45 | Outpatient (RCR) | payer OTHER, SELFPAY | END 2024-01-18 23:59 | disposition home or self-care (01) | PROVIDERS: PCP Family Medicine; Visit Provider Orthopaedic Surgery Sports Medicine | DX: M22.8X2 Other disorders of patella, left knee (principal); M25.562 Pain in left knee; Z51.89 Encounter for other specified aftercare | CPT/HCPCS: 97110; 97140; 97161; T1013 ==

== ENCOUNTER 2023-12-22 12:40 | Emergency (ER) | payer OTHER, SELFPAY ==
[2023-12-22 12:57] VITALS: BP 125/89; PULSE 75; RESP 16; TEMP 36; O2SAT 98; BMI 35.9
[2023-12-22] MEDS: MAG HYDROX/ALUMINUM HYD/SIMETH 30 ML ORAL.SUSP 15 ML PO (13:25)
--- NOTE | 2023-12-22 13:33 | ED.GENADULT ---
HPI - General Adult General Date Seen: 12/22/23 Chief complaint: Abdominal Pain Stated complaint: Abdominal pain Time Seen by Provider: 12/22/23 13:08 Source: patient, RN notes reviewed, retail mortgage banker and other Mode of arrival: ambulatory Limitations: language barrier History of Present Illness HPI narrative: Patient is a 53-year-old woman referred here from urgent care for evaluation of abdominal pain. She tells me she has been having left upper quadrant and epigastric pain on and off for the past 4 days. She did sometimes feel like eating made it worse, denies nausea or vomiting. She has had normal bowel movements. No fevers. No chest pain or difficulty breathing. She has a history of cholecystectomy as well as hysterectomy. She denies significant alcohol use. She has been taking ibuprofen for pain which does not help. She is not aware that it seems to make pain worse. No symptoms of GI bleeding. She also notes that a few weeks ago she had labs done for her thyroid, she tells me through the retail mortgage banker that her alk: Something was elevated and her doctor was going to refer her to an metal products viewer. She seems to feel that alkaline phosphatase may have been the correct lab, but I do not have access to her actual labs. She does note that it was something to do with her liver, but seem sure that she was going to be referred to endocrinology and not GI. Related Data Home Medications Medication Instructions Recorded Confirmed cholecalciferol (vitamin D3) 125 125 mcg PO QDAY 06/25/22 12/22/23 mcg (5,000 unit) tablet (Vitamin D3) fluoxetine 40 mg capsule 60 mg PO QDAY 06/25/22 12/22/23 mirtazapine 15 mg tablet 15 mg PO QHS 06/25/22 12/22/23 bupropion HCl 150 mg 24 hr tablet, mg PO 11/15/22 12/22/23 extended release levothyroxine 112 mcg tablet 112 mcg PO DAILY 09/20/23 12/22/23 estradiol 0.025 mg/24 hr weekly 1 patch transdermal QWEEK 12/22/23 12/22/23 transdermal patch (Climara) semaglutide (weight loss) 2.4 2.4 mg subcut .weekly 12/22/23 12/22/23 mg/0.75 mL subcutaneous pen injector (Tammy) terbinafine HCl 250 mg tablet 250 mg PO DAILY 12/22/23 12/22/23 Previous Rx's Medication Instructions Recorded omeprazole 40 mg capsule,delayed 40 mg PO DAILY #14 caps 12/22/23 release Allergies Allergy/AdvReac Type Severity Reaction Status Date / Time No Known Drug Allergies Allergy Verified 12/22/23 12:53 Review of Systems Status of ROS: Reports: 10 or more systems reviewed and unremarkable except as noted in History and below [facility] Medical History Rectal hemorrhage ?K62.5 - Hemorrhage of anus and rectum (ICD-10) Neuropathic pain of left lower extremity ?M79.2 - Neuralgia and neuritis, unspecified (ICD-10) Lower abdominal pain ?R10.30 - Lower abdominal pain, unspecified (ICD-10) Acute epigastric pain ?R10.13 - Epigastric pain (ICD-10) GERD (gastroesophageal reflux disease) ?K21.9 - Gastro-esophageal reflux disease without esophagitis (ICD-10) Gastritis ?K29.70 - Gastritis, unspecified, without bleeding (ICD-10) Vertigo ?R42 - Dizziness and giddiness (ICD-10) Surgical History S/P hysterectomy ?Z90.710 - Acquired absence of both cervix and uterus (ICD-10) S/P left knee arthroscopy (11/17/22) ?Z98.890 - Other specified postprocedural states (ICD-10) History of carpal tunnel surgery of right wrist ?Z98.890 - Other specified postprocedural states (ICD-10) History of foot surgery (05/02/17) ?Z98.890 - Other specified postprocedural states (ICD-10) History of back surgery ?Z98.890 - Other specified postprocedural states (ICD-10) H/O breast biopsy ?Z98.890 - Other specified postprocedural states (ICD-10) Previous section ?Z98.891 - History of uterine scar from previous surgery (ICD-10) Family History Mother Diabetes Father Heart problem Social History Smoking Status: Never smoker Do you use any of these nicotine containing products: None Second hand tobacco smoke exposure: No How often do you have a drink containing alcohol: never AUDIT-C Alcohol total score: 0 Non-prescribed substance use: denies use Caffeine: Yes Are you using contraception or practicing any form of control: No service: No Exam Narrative: Exam Narrative: Vital signs as noted above. In general, an alert, well-appearing patient. Head: Normocephalic, atraumatic. Eyes: Pupils are equal reactive. Extraocular movements are full. Conjunctivae are normal. ENT: Mucous membranes are moist. Neck: Supple without lymphadenopathy. Heart: Regular rate and rhythm. No murmur or rub. Lungs: Clear bilaterally. No increased work of breathing, crackles or wheezes. Abdomen: Soft and nondistended. Bowel sounds present. Mild epigastric and left upper quadrant tenderness without rebound guarding or rigidity. Extremities: Well perfused. No edema. No calf tenderness. Pulses intact. Neurologic: Patient is alert and oriented to person and place. Speech is fluent. Face is symmetric. Moves all extremities equally. Affect: Normal. Skin: Warm and dry. Well perfused. Const: Vital Signs, click to edit/add: Vital Signs - 24 hr 12/22/23 12:57 12/22/23 14:03 Temperature 96.8 F L Pulse Rate [Pulse Oximeter] 75 52 L Respiratory Rate 16 16 Blood Pressure [Ri ght Upper Arm] 125/89 92/67 Pulse Oximetry 98 96 Oxygen Delivery Me thod Room Air Room Air Documenting provider has reviewed patient's vital signs: yes Course Course ED Course: Patient had a number of labs done in urgent care including a CBC, metabolic panel, UA all of which were entirely normal. Her abdominal exam is benign. I suggested her that we check a lipase and LFTs, she is status post cholecystectomy but make sure that there is not any signs of an obstructive picture from the standpoint of her liver function tests. If these tests are normal, I think imaging is of unlikely benefit given the location of her pain in the setting of multiple days duration and normal labs. Would recommend at that point a trial of a PPI and primary care follow-up. Lipase is normal, LFTs are really entirely within normal limits, her AST is 36, reference range up to 35. Alk-phos is normal. No patient does take Wegovy, which could be potentially contributing to her symptoms of epigastric and left upper quadrant pain. I do think it is reasonable to start her on a PPI, I have asked her to make an appointment with her primary clinic for recheck next week. For severe pain, vomiting, fevers or other worsening, return any time to the emergency department. Asked her to avoid ibuprofen for now. Vital Signs Vital signs: Initial Vital Signs Temperature 96.8 F L 12/22/23 12:57 Temperature Source Temporal Artery Scan 12/22/23 12:57 Pulse Rate 75 12/22/23 12:57 Pulse Rhythm Regular 12/22/23 12:57 Pulse Strength 3+ Normal 12/22/23 12:57 Respiratory Rate 16 12/22/23 12:57 Blood Pressure 125/89 12/22/23 12:57 Blood Pressure Mean 101 12/22/23 12:57 Blood Pressure Position Supine 12/22/23 12:57 Pulse Oximetry 98 12/22/23 12:57 Oxygen Delivery Method Room Air 12/22/23 12:57 Vital Signs Temperature 96.8 F L 12/22/23 12:57 Pulse Rate 75 12/22/23 12:57 Respiratory Rate 16 12/22/23 12:57 Blood Pressure 125/89 12/22/23 12:57 Pulse Oximetry 98 12/22/23 12:57 Oxygen Delivery Method Room Air 12/22/23 12:57 Temperature 96.8 F L 12/22/23 12:57 Pulse Rate 52 L 12/22/23 14:03 Respiratory Rate 16 12/22/23 14:03 Blood Pressure 92/67 12/22/23 14:03 Pulse Oximetry 96 12/22/23 14:03 Oxygen Delivery Method Room Air 12/22/23 14:03 Medications Administered Medications: Discontinued Medications Generic Name Dose Route Start Last Admin Trade Name Freq PRN Reason Stop Dose Admin Lidocaine/Aluminum/Magnesium/Simeth 15 ml 12/22/23 13:21 12/22/23 13:25 Mag Hydrox/Aluminum Hyd/Simeth 30 Ml Oral.Susp PO 12/22/23 13:22 15 ml ONCE ONE Administration Medical Decision Making Lab Data Labs: Lab Results 12/22/23 Range/Units 13:33 Lactate 0.5 (0.5-1.9) mmol/L Total Bilirubin 0.3 (0.1-1.5) mg/dL Direct Bilirubin 0.2 (0.0-0.5) mg/dL AST 36 H (12-35) U/L ALT 29 (4-35) U/L Alkaline Phosphatase 145 (40-150) U/L Total Protein 7.4 (6.0-8.3) g/dL Albumin 4.2 (3.3-5.0) g/dL Lipase 150 (23-300) U/L Discharge Plan Discharge Clinical Impression: Abdominal pain Patient Disposition: Home, Self-Care Condition: Stable Instructions: Abdominal Pain (ED) Additional Instructions: Your liver and pancreatic labs are normal here today. As discussed, all of your labs from Urgent Care also normal. I would recommend that we start you on omeprazole, 40 mg daily. Please call and make a follow-up appointment with your primary clinic to be seen next week for re-evaluation. You can use medicines like Pepcid, Tums, Maalox as well. Some people who take Wegovy developed problems with stomach pain, and this is some something you can discuss further with your primary doctor. I would avoid ibuprofen for now. For severe pain, vomiting, fevers or other worsening, return to the emergency department. Prescriptions: New omeprazole 40 mg capsule,delayed release(DR/EC) 40 mg PO DAILY Qty: 14 2RF No Action mirtazapine 15 mg tablet 15 mg PO QHS fluoxetine 40 mg capsule 60 mg PO QDAY Patient Comments: TAKE 1 CAPSULE (40 MG) BY MOUTH EVERY MORNING. cholecalciferol (vitamin D3) [Vitamin D3] 125 mcg (5,000 unit) tablet 125 mcg PO QDAY levothyroxine 112 mcg tablet 112 mcg PO DAILY terbinafine HCl 250 mg tablet 250 mg PO DAILY Wegovy 2.4 mg/0.75 mL pen injector 2.4 mg subcut .weekly estradiol [Climara] 0.025 mg/24 hr patch weekly 1 patch transdermal QWEEK bupropion HCl 150 mg tablet extended release 24 hr PO Patient Comments: TAKE 2 TABLETS (300 MG) BY MOUTH EVERY MORNING. Follow Up/Referrals: Mariel Magaña DO [Primary Care Provider] - Stand Alone [facility]
[2023-12-22 13:36] LABS: Lactate Sepsis w/Reflex* 0.5 mmol/L (0.5-1.9)
[2023-12-22 13:57] LABS: Albumin* 4.2 g/dL (3.3-5.0)
[2023-12-22 14:00] LABS: Alanine Aminotransferase* 29 U/L (4-35); Alkaline Phosphatase* 145 U/L (40-150); Aspartate Amino Transferase* 36 U/L (12-35); Bilirubin Direct* 0.2 mg/dL (0.0-0.5); Bilirubin Total* 0.3 mg/dL (0.1-1.5); Lipase* 150 U/L (23-300); Total Protein* 7.4 g/dL (6.0-8.3)
[2023-12-22 14:03] VITALS: BP 92/67; PULSE 52; RESP 16; O2SAT 96
== END 2023-12-22 14:43 | disposition home or self-care (01) ==
PROVIDERS: Emergency Provider Emergency Medicine; PCP Family Medicine
DX: R10.9 Unspecified abdominal pain (principal)
CPT/HCPCS: 36415; 80076; 83605; 83690; 99283; 99284; A9270

== ENCOUNTER 2024-10-08 07:35 | Outpatient (CLI) | payer OTHER, SELFPAY ==
--- NOTE | 2024-10-08 07:15 | MR_ITS ---
[address] [address] Phone:?[phone] Fax:?[phone] Referring Physician Information: Adams Gaitan M.D. [id number] [facility] [id number] Phone:?[phone] Fax:?[phone] Patient:Ayad Pitt.Jakob.B:?1970 Sex:?Female Phone:?[phone] [facility] MRN:?[id number] Exam Date:?10/08/2024 EXAM: MRI EXAMINATION OF THE LEFT KNEE CLINICAL INFORMATION: Chronic left knee pain. History of surgery. TECHNICAL INFORMATION: Coronal PD and STIR. Axial PD and T2 fat saturation. Sagittal PD and PD fat saturation images acquired. Comparison is made with June 30, 2023. INTERPRETATION: Bones: Patchy mild subchondral edema signal of the lateral compartment. Localized subchondral edema signal involves the high posterior portion of the medial femoral condyle. No occult fracture or AVN. No other abnormal bone marrow edema pattern is identified. Ligaments and tendons: The medial collateral ligament is intact, without acute sprain or tear. The iliotibial band, fibular collateral ligament, biceps femoris tendon and popliteus tendon all are intact. The anterior cruciate ligament is intact without acute sprain or tear. The posterior cruciate ligament is intact. Extensor Mechanism: The patellar and quadriceps tendons are intact. The medial and lateral retinacula are intact. Knee Joint: There is a small to moderate knee joint effusion. There is a moderately large popliteal cyst. There is no discrete loose body seen within the joint. Medial Compartment: There is no evidence for discrete medial meniscal tear. No displaced flap fragment or parameniscal cyst. 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 Localized chondromalacia with a superimposed full-thickness vertical fissure involves the high posterior portion of the femoral condyle. Lateral Compartment: There is tearing along the superior surface of the junction of body and anterior horn of the lateral meniscus. Severely truncated, absent appearance throughout the anterior horn of the meniscus. No displaced flap fragment or parameniscal cyst. 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 Chondromalacia of the femoral condyle includes a 1 to 2 mm focus of grade 3 to IV involvement. Patellofemoral articulation: Series 4 image 11 demonstrates a focal, shallow chondral fissure with a 1 to 2 mm flap lateral to the midline patella. Grade 1-2 chondromalacia along the midline trochlear groove. CONCLUSION: 1. Tearing along the superior surface of the junction of body and anterior horn lateral meniscus. Severely truncated, absent appearance throughout the anterior horn. 2. No medial meniscal tear. The cruciate ligaments are intact. 3. Similar appearance of grade III and IV chondromalacia along the mid to medial surface of the lateral tibial plateau. Chondromalacia includes a tiny focus of grade III to IV involvement of the femoral condyle, progressed. 4. Patchy grade II to III chondromalacia again identified of the weight-bearing surface of the medial femoral condyle. Localized chondromalacia with superimposed full-thickness vertical fissure involves its high posterior portion, appearing progressed. 5. There is a focal, shallow chondral fissure with a tiny flap lateral to the midline patella, representing a new finding. 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 [facility] Electronically signed on 10/08/2024 4:00:00 PM by Reddy Galicia M.D.
== END 2024-10-08 07:36 | disposition home or self-care (01) ==
PROVIDERS: PCP Family Medicine; Visit Provider Orthopaedic Surgery Sports Medicine
DX: M25.562 Pain in left knee (principal); S83.282A Other tear of lateral meniscus, current injury, left knee, initial encounter; M94.262 Chondromalacia, left knee; M23.201 Derangement of unspecified lateral meniscus due to old tear or injury, left knee; M17.12 Unilateral primary osteoarthritis, left knee; M22.8X2 Other disorders of patella, left knee; M76.52 Patellar tendinitis, left knee
CPT/HCPCS: 73721; T1013

== ENCOUNTER 2025-04-29 14:30 | Outpatient (RCR) | payer OTHER, SELFPAY | END 2025-07-15 09:44 | disposition home or self-care (01) | PROVIDERS: PCP Family Medicine; Visit Provider Orthopaedic Surgery Sports Medicine | DX: S93.401D Sprain of unspecified ligament of right ankle, subsequent encounter (principal); M70.52 Other bursitis of knee, left knee; S80.00XD Contusion of unspecified knee, subsequent encounter; Z02.6 Encounter for examination for insurance purposes; M25.562 Pain in left knee; Z51.89 Encounter for other specified aftercare | CPT/HCPCS: 97110; 97140; 97162; T1013 ==